=== PATIENT | female | born 1965 | race Caucasian/White ===

== ENCOUNTER 2018-09-08 08:03 | Emergency (ER) | payer BC ==
[~2018-09-08] VITALS: Ht 160 cm; Wt 93.4 kg
[~2018-09-08 08:03] MED LIST: ALBU90OI INH; AMLO5; AMLODIPINE 10 MG; Azor 5-40 MG T1 EACH PO; DIVIGEL1 EAC1 TD; ESTR1; FOSI10; FOSI10 PO; IBUPROFEN 800 MG; LEVFLO500 PO; MONOPRIL; NITR100CA; OXYACE5T; OXYACE5T PO; PRED10 PO; PROM25; PROM25 PO
[2018-09-08] MEDS ORDERED: AMLO10 PO (08:32)
[2018-09-08] MEDS ORDERED: HYDR1TAB94 PO (08:34)
[2018-09-08] MEDS ORDERED: Zovirax800 MG PO (08:34)
[2018-09-08] MEDS ORDERED: FOSI10 PO (08:38)
== END 2018-09-08 08:40 | disposition home or self-care (01) ==
LOC: ER 08:03
DX: B02.9 Zoster without complications (principal); Z88.0 Allergy status to penicillin; Z88.1 Allergy status to other antibiotic agents
CPT/HCPCS: 99282

== ENCOUNTER 2021-03-28 20:44 | Emergency (ER) | payer BC ==
[~2021-03-28] VITALS: Ht 160 cm; Wt 95.7 kg
[~2021-03-28 20:44] MED LIST changes: +AMLO10 PO; +HYDR1TAB94 PO; +Zovirax800 MG PO
== END 2021-03-28 23:39 | disposition home or self-care (01) ==
LOC: ER 20:44
DX: R21 Rash and other nonspecific skin eruption (principal); I10 Essential (primary) hypertension; Z88.0 Allergy status to penicillin; Z88.1 Allergy status to other antibiotic agents; Z79.899 Other long term (current) drug therapy
CPT/HCPCS: 99282; A9270; J7512

== ENCOUNTER → 2023-06-22 | Outpatient (CLI) | payer BC, OTHER ==
[2023-06-26 07:13] LABS: CREATININE,URINE - PER 24H 1584 mg/d (500-1400); CREATININE,URINE - PER VOLUME 66 mg/dL; DOPAMINE,URINE - PER 24H 288 ug/d (71-485); DOPAMINE,URINE - PER VOLUME 120 ug/L; DOPAMINE,URINE - RATIO TO CRT 182 ug/g CRT (0-250); EPINEPHRINE,URINE - PER 24H <5 ug/d (1-14); EPINEPHRINE,URINE - PER VOLUME <2 ug/L; EPINEPHRINE,URN - RATIO TO CRT <3 ug/g CRT (0-20); HOURS COLLECTED 24 hr; NOREPINEPHRINE,UR - PER VOLUME 23 ug/L; NOREPINEPHRINE,URINE - PER 24H 55 ug/d (14-120); NOREPINEPHRINE,URN/CRT RATIO 35 ug/g CRT (0-45); TOTAL VOLUME 2400 mL
== END | disposition home or self-care (01) ==
LOC: LAB 08:52 → LAB SHORT 08:52
PROVIDERS: Family Medicine
DX: I1A.0 Resistant hypertension (principal)
CPT/HCPCS: 82384

== ENCOUNTER → 2024-01-29 | Outpatient (CLI) | payer BC, OTHER ==
[2024-01-29 11:38] LABS: Protein, Urine Quantitative 8.7 mg/dL (0.0-11.9)
[2024-01-29 11:53] LABS: Microalbumin, Urine Quant. <5.000 mg/L (0.000-20.000)
== END ==
LOC: LAB 10:01 → LAB SHORT 10:01
PROVIDERS: Internal Medicine Nephrology
DX: E55.9 Vitamin D deficiency, unspecified (principal); N18.30 Chronic kidney disease, stage 3 unspecified; D63.1 Anemia in chronic kidney disease; R76.9 Abnormal immunological finding in serum, unspecified; R94.5 Abnormal results of liver function studies; R94.6 Abnormal results of thyroid function studies
CPT/HCPCS: 81050; 82043; 82570; 84156